=== PATIENT | female | born 1990 | race Caucasian/White ===

== ENCOUNTER 2018-04-11 11:52 | Outpatient (CLI) | payer OTHER | END 2018-04-11 15:57 | disposition home or self-care (01) | LOC: MRI 11:52 | DX: R51 Headache (principal); M54.5 Low back pain; J40 Bronchitis, not specified as acute or chronic; I10 Essential (primary) hypertension; E03.8 Other specified hypothyroidism; Z01.810 Encounter for preprocedural cardiovascular examination; G43.909 Migraine, unspecified, not intractable, without status migrainosus; G43.009 Migraine without aura, not intractable, without status migrainosus | CPT/HCPCS: 70551 ==

== ENCOUNTER 2023-01-15 10:43 | Outpatient (CLI) | payer OTHER | END 2023-01-15 10:51 | disposition home or self-care (01) | LOC: RAD 10:43 | PROVIDERS: ATTEND Internal Medicine | DX: Z01.810 Encounter for preprocedural cardiovascular examination (principal); J40 Bronchitis, not specified as acute or chronic; I10 Essential (primary) hypertension; M54.59 Other low back pain; E03.9 Hypothyroidism, unspecified; G43.009 Migraine without aura, not intractable, without status migrainosus; G43.909 Migraine, unspecified, not intractable, without status migrainosus ==